=== PATIENT | female | born 1995 ===

== ENCOUNTER 2016-09-11 08:25 | Emergency (ER) | payer MEDICAID ==
[~2016-09-11] VITALS: Ht 170.2 cm; Wt 105.0 kg
[2016-09-11 08:30] VITALS: BP 153/95; PULSE 70; RESP 16; O2SAT 98
[2016-09-11] MEDS ORDERED: 0.9% Sodium Chloride 1,000 ML IV ONE (09:06)
--- NOTE | 2016-09-11 09:06 | ED.REPORT ---
HPI-General Illness Date of Service Sep 11, 2016 ED Provider: Kenny Stanford MD A 20 year old female with a history of diabetes s/p laparoscopic sleeve gastrectomy presents to the ED with vomiting onset 3-4 days ago. Associated symptoms include a hoarse voice, nausea, subjective fever, abdominal pain secondary to vomiting, and a productive cough with sputum that was green initially, but is now white and foamy. The patient also reports three episodes of weakness, confusion, and syncope as well as reduced urination until today, when her urine was very abundant and dark. The patient believes she may be developing a yeast infection. She denies hematemesis, rash, diarrhea, or injuries/trauma from falling after syncope. Nursing Notes Stated Complaint: DEHYDRATION Chief Complaint: General Complaint Nursing Notes Reviewed: Yes Allergies: Coded Allergies: naproxen (Verified Allergy, Intermediate, DIARRHEA AND HIVES, 09/11/16) Scheduled PRN Ondansetron ODT (Zofran ODT) 4 Mg Tablet 4 MG PO Q4H PRN PRN For Nausea General Time Seen by MD: 09:05 Chief Complaint Vomiting Hx Obtained From: Patient Arrived By: Walk-in Sudden in Onset?: Yes Onset Occurred: 3 days ago Symptom Duration: Since onset Location: : Abdomen Quality: Painful Severity: Current: Moderate Severity: Maximum: Moderate Associated with: Reports: Cough, Fever (Subjective ), Nausea, Weakness Pertinent Negative: Relieved by nothing Context Related History: Reports Diabetes mellitus Recent Healthcare: No recent doctor visit Similar Sx Previous: No Past Medical History Past Medical History Diabetes type 2 - no longer takes insulin 09/11/16 Past Surgical History Laparoscopic sleeve gastrectomy Smoking History Unknown if Ever Smoker Social History Other Social History: Good social support Ambulatory Status Independent Review of Systems + hoarse voice, dark urine, concern for yeast infection Full Review of Systems Constitutional: Reports: Fever (Subjective) Respiratory: Reports: Prod cough, green, Prod cough, white GI: Reports: Abdominal pain, Nausea, Vomiting, Denies: Diarrhea, Hematemesis Female: Reports: Urination decreased (Until today) Skin: Denies Rash Neurologic: Reports: Confusion, Syncope, Weakness Complete sys rev & neg: except as marked. Physical Exam Vital Signs Vital Signs Date Time Temp Pulse Resp B/P Pulse Ox O2 Delivery O2 Flow Rate FiO2 09/11/16 11:39 36.7 76 23 115/63 98 Room Air 09/11/16 11:04 76 23 115/63 98 Room Air 09/11/16 09:32 73 21 145/84 98 Room Air 09/11/16 08:30 36.7 70 16 153/95 98 Room Air Initial VS: Reviewed Head / Eyes: Atraumatic, Normocephalic Neck: Supple, Full range of motion Neurologic: Alert, Oriented, Nonfocal Psychiatric: Mood/affect normal, Behavior normal, Normal thought content General/Constitutional: Awake, Alert ENT: Airway patent, Mucous membranes moist, Pharynx NL Lips dry Respiratory / Chest: Breath sounds NL, Breath sounds = bilat, No respiratory distress Cardiovascular: Heart rate NL, Regular rhythm, Heart sounds NL Abdomen: Soft, No guarding, No palpable mass Tenderness/Guarding/Rebound: Positive: Tender diffuse (Moderate) Back: Full range of motion Flank / Spine / Paraspinal: Positive: Flank tender bilateral Skin: No rash, Warm, Dry Interpretation & Diagnostics URINE TEST NEGATIVE URINE DIPSTICK 1.020 sp gravity 5 pH ++ Leukocytes +30 Protein Normal glucose +++ Large Ketones 4 Urobilinogen ++ Bilirubin Otherwise Negative Lab Results Interpretation Result Diagram: 09/11/16 0925 09/11/16 0925 Test 09/11/16 09:25 09/11/16 10:58 White Blood Count 14.8th/mm3 (3.8-10.1) Red Blood Count 4.96mil/mm3 (3.90-5.20) Hemoglobin 12.8g/dL (12.0-15.6) Hematocrit 38.5% (35.0-46.0) Mean Corpuscular Volume 77.6fL (81-100) Mean Corpuscular Hemoglobin 25.8pg (27.0-35.0) Mean Corpuscular Hemoglobin Concent 33.2% (32.0-37.0) Red Cell Distribution Width 14.9% (12.3-15.4) Platelet Count 253bil/L (150-400) Neutrophils (%) (Auto) 75.4% (40-74) Lymphocytes (%) (Auto) 16.1% (14-46) Monocytes (%) (Auto) 7.8% (4-12) Eosinophils (%) (Auto) 0.2% (0-5) Basophils (%) (Auto) 0.2% (0-3) Sodium Level 142mEq/L (134-144) Potassium Level 3.5mEq/L (3.5-5.2) Chloride Level 103mEq/L (97-108) Carbon Dioxide Level 19mmol/L (18-29) Blood Urea Nitrogen 25mg/dL (6-20) Creatinine 0.71mg/dL (0.57-1.00) Estimat Glomerular Filtration Rate 147mL/min (>59) Glucose Level 110mg/dL (60-99) Calcium Level 9.2mg/dL (8.5-10.1) Total Bilirubin 1.1mg/dL (0.0-1.2) Aspartate Amino Transf (AST/SGOT) 40U/L (0-50) Alanine Aminotransferase (ALT/SGPT) 24U/L (0-32) Alkaline Phosphatase 64U/L (25-150) Total Protein 8.1g/dL (6.4-8.4) Albumin 4.8g/dL (3.4-5.0) Hold [place] Top Tube Received (Received) Hold Urine Received (Received) Re-Eval/Medical Decision Med Decision/Clinical Course The urine looks contaminated to me, for this reason we will wait for the urine culture to decide on treatment. She does not have dysuria either. Her symptoms to me seem more consistent with a viral flulike syndrome. Time of Eval: 10:28 Patient Status: Condition improved Re-Evaluation/Progress Note: Discussed with patient lab results, diagnosis, and plan for discharge. Follow-up and return to the ER instructions given. Patient agrees with plan for care and all questions were addressed. Counseled Regarding: Diagnosis, Lab results, Need for follow-up, When/why to return to ED Discharge & Departure Primary Impression: Fever Fever type: unspecified Qualified Code: R50.9 - Fever, unspecified Additional Impressions: Vomiting Vomiting type: unspecified Vomiting Intractability: non-intractable Nausea presence: with nausea Qualified Code: R11.2 - Nausea with vomiting, unspecified Dehydration Disposition: Home Discharge Condition All VS Reviewed: Yes Condition: Stable Patient Instructions: Dehydration (ED), Fever in Adults (ED) Additional Instructions: Thank you for entrusting us with your care. Your exam today was reassuring. No dangerous infection or cause for your symptoms was discovered. I suspect a viral illness. Please take ondansetron as prescribed to help with the nausea as needed. Remain hydrated by taking small sips of water frequently. Call your primary care provider tomorrow for a follow-up appointment. Return to the ER with any new or worsening symptoms. Referrals: [facility] Scribe Attestation Portions of this note were transcribed by Soledad Bangura. I, Dr. Stanford, personally performed the history, physical exam, and medical decision-making; I reviewed and confirmed the accuracy of the information in the transcribed note. Signed by: Frank Mars, 09/11/2016, 12:34 copies to: [facility] Kenny Stanford MD Sep 11, 2016 09:06 SOLEDAD BAGNURA Sep 11, 2016 09:17
[2016-09-11] MEDS ORDERED: Ondansetron 2 mg/mL 2 mL Inj IVPUSH PRN (09:10)
[2016-09-11 09:32] VITALS: BP 145/84; PULSE 73; RESP 21; O2SAT 98
[2016-09-11 09:35] LABS: BASOPHILS % (AUTO) 0.2 % (0-3); EOSINOPHILS % (AUTO) 0.2 % (0-5); MONOCYTES % (AUTO) 7.8 % (4-12); Mean Corpuscular Hemoglobin 25.8 pg (27.0-35.0); Mean Corpuscular Volume 77.6 fL (81-100); NEUTROPHILS % (AUTO) 75.4 % (40-74); Platelet Count 253 bil/L (150-400)
[2016-09-11 11:04] VITALS: BP 115/63; PULSE 76; RESP 23; O2SAT 98
[2016-09-11] MEDS ORDERED: ONDA4TAB9 PO (11:11)
[2016-09-11 11:39] VITALS: BP 115/63; PULSE 76; RESP 23; O2SAT 98
== END 2016-09-11 11:39 | disposition home or self-care (01) ==
LOC: SED 08:25
DX: R50.9 Fever, unspecified (principal); R11.2 Nausea with vomiting, unspecified; E86.0 Dehydration; R10.9 Unspecified abdominal pain; R05 Cough; R53.1 Weakness; R41.0 Disorientation, unspecified; R55 Syncope and collapse; E11.9 Type 2 diabetes mellitus without complications; Z98.890 Other specified postprocedural states; Z88.8 Allergy status to other drugs, medicaments and biological substances
CPT/HCPCS: 36415; 80053; 81025; 82948; 85025; 87086; 96361; 96374; 99284; J2405; J7030